=== PATIENT | female | born 1955 | race Caucasian/White ===

== ENCOUNTER 2022-08-31 16:29 | Emergency (ER) | payer MEDICARE, BC, SELFPAY ==
[2022-08-31 16:57] VITALS: BP 162/65; PULSE 72; RESP 18; TEMP 37.2; O2SAT 97
--- NOTE | 2022-08-31 17:13 | ED.URI ---
HPI - URI/Sore Throat General Chief Complaint: Upper Respiratory Infection Stated Complaint: headache,cough,lt ear drainage Time Seen by Provider: 08/31/22 17:14 Source: patient, RN notes reviewed and old records reviewed Mode of arrival: ambulatory Limitations: no limitations History of Present Illness HPI Narrative: 66-year-old female presents to the [facility] with complaints of cough, headache and My sinuses are draining out of my ears. patient has a history of chronic sinus issues, multiple sinus surgeries. Symptoms x5 days. Related Data Home Medications Medication Instructions Recorded Confirmed aripiprazole 2 mg tablet 2 mg PO DAILY 08/31/22 08/31/22 azelastine 137 mcg (0.1 %) nasal 2 spray intranasal BID 08/31/22 08/31/22 spray aerosol duloxetine 60 mg capsule,delayed 60 mg PO DAILY 08/31/22 08/31/22 release omeprazole 20 mg capsule,delayed 20 mg PO DAILY 08/31/22 08/31/22 release rosuvastatin 10 mg tablet 10 mg PO DAILY 08/31/22 08/31/22 Allergies Allergy/AdvReac Type Severity Reaction Status Date / Time triamterene AdvReac Intermediate Nausea and Verified 08/31/22 17:45 Vomiting amlodipine AdvReac Mild Hives Verified 08/31/22 17:45 azithromycin AdvReac Mild Hives Verified 08/31/22 17:45 cetirizine AdvReac Mild Hives Verified 08/31/22 17:43 enalapril AdvReac Mild Hives Verified 08/31/22 17:44 fexofenadine AdvReac Mild Hives Verified 08/31/22 17:43 hydrochlorothiazide AdvReac Mild Itching Verified 08/31/22 17:44 hydroxyzine AdvReac Mild Hives Verified 08/31/22 17:46 sulfamethoxazole AdvReac Mild Itching Verified 08/31/22 17:46 [From Bactrim] trimethoprim [From Bactrim] AdvReac Mild Itching Verified 08/31/22 17:46 Review of Systems Review of Systems: All systems reviewed & are unremarkable except as noted in HPI and below Constitutional: Constitutional: Reports no additional constitutional complaints Eyes: Eyes: Reports no additional eye complaints ENT: Reports as per HPI and Reports nasal congestion Cardiovascular: Cardiovascular: Reports no additional cardiovascular complaints, Denies chest pain and Denies dyspnea Respiratory: Respiratory: Reports no additional respiratory complaints, Denies chest congestion, Denies cough and Denies dyspnea Gastrointestinal: Gastrointestinal: Reports no additional gastrointestinal complaints, Denies abdominal pain, Denies nausea and Denies vomiting Musculoskeletal: Musculoskeletal: Reports no additional musculoskeletal complaints Integumentary/Breasts: Skin/Breast: Reports system reviewed and no additional complaints, except as docu Neurologic: Reports system reviewed and no additional complaints, except as documented Psychiatric: Psychiatric: Reports no additional psychiatric complaints Allergic/Immunologic: Allergic/Immunologic: Reports no additional allergic/immunologic complaints PMFSH Past Medical History Medical History Acid reflux Anxiety and depression High cholesterol Surgical History Surgical History (Updated 08/31/22 @ 17:39 by Ludy Erickson APRN) History of sinus surgery Comments At the time of my signature, I reviewed and agree with the nursing past medical, surgical, social, and family history. There is no relevant family history pertinent to the patient complaint. Exam Const: General: cooperative, healthy appearing, comfortable, no acute distress, well developed, alert and well nourished Nutritional Appearance: well nourished and obese Orientation/consciousness: patient oriented x3 Limitations: no limitations HENMT: Head: normal to inspection Ears: hearing grossly normal bilaterally and external ears normal Face/Nose/Sinus: Normal external nose present, Normal nares present, Abnormal mucous membranes and turbinates present boggy bilateral and erythematous bilateral, no nasal discharge noted, normal facial exam, face symmetric and sinus tenderness Face and
== END 2022-08-31 17:45 | disposition home or self-care (01) ==
PROVIDERS: Emergency Provider Nurse Practitioner; PCP Internal Medicine
DX: J40 Bronchitis, not specified as acute or chronic (principal)
CPT/HCPCS: 99203; G0463

== ENCOUNTER 2022-09-02 15:05 | Emergency (ER) | payer MEDICARE, BC, SELFPAY ==
[2022-09-02 15:55] VITALS: BP 162/70; PULSE 65; RESP 20; TEMP 37.2; O2SAT 98
[2022-09-02 15:58] VITALS: BP 162/70; PULSE 65; RESP 20; TEMP 37.2; O2SAT 98
--- NOTE | 2022-09-02 16:11 | ED.GENADULT ---
HPI - General Adult General Chief complaint: Skin/Abscess/Foreign Body Stated complaint: rash Time Seen by Provider: 09/02/22 16:11 Source: patient Mode of arrival: ambulatory Limitations: no limitations History of Present Illness HPI narrative: 66-year-old female patient presents to the [facility] with complaints of a rash. Patient was seen here on Saturday and was prescribed methylprednisone and doxycycline for sinusitis. Patient states she feels like she is doing better after starting the medications yesterday. Patient states she still feels like she is wheezing at times. Patient denies any fevers, body aches or chills. Patient states she woke up this morning and noticed or bright red rash on her chest and feels itchy all over. Patient has issues in the past with being very sensitive to antibiotics and other medication and has multiple allergies that result in hives and rash. Patient was told a couple of years ago that she needed allergy shots however she refused umbilicus patient states she does have get allergy and sinus infections often. Patient states she did take some clear today which did help the itchiness symptoms. Patient states she does take Pepcid once a day but is supposed to take it twice a day for her gastrointestinal doctor. Patient denies any chest pain, shortness of breath or swelling to the throat. Related Data Home Medications Medication Instructions Recorded Confirmed aripiprazole 2 mg tablet 2 mg PO DAILY 08/31/22 09/02/22 azelastine 137 mcg (0.1 %) nasal 2 spray intranasal BID 08/31/22 09/02/22 spray aerosol duloxetine 60 mg capsule,delayed 60 mg PO DAILY 08/31/22 09/02/22 release omeprazole 20 mg capsule,delayed 20 mg PO DAILY 08/31/22 09/02/22 release rosuvastatin 10 mg tablet 10 mg PO DAILY 08/31/22 09/02/22 Allergies Allergy/AdvReac Type Severity Reaction Status Date / Time triamterene AdvReac Intermediate Nausea and Verified 09/02/22 15:58 Vomiting amlodipine AdvReac Mild Hives Verified 09/02/22 15:58 azithromycin AdvReac Mild Hives Verified 09/02/22 15:58 cetirizine AdvReac Mild Hives Verified 09/02/22 15:58 enalapril AdvReac Mild Hives Verified 09/02/22 15:58 fexofenadine AdvReac Mild Hives Verified 09/02/22 15:58 hydrochlorothiazide AdvReac Mild Itching Verified 09/02/22 15:58 hydroxyzine AdvReac Mild Hives Verified 09/02/22 15:58 sulfamethoxazole AdvReac Mild Itching Verified 09/02/22 15:58 [From Bactrim] trimethoprim [From Bactrim] AdvReac Mild Itching Verified 09/02/22 15:58 Review of Systems Review of Systems: CONSTITUTIONAL: Denies fever, chills, or sweats. EYES: Denies visual changes, redness, or discharge. ENT: Denies rhinorrhea, congestion, sore throat, or otalgia. CARDIOVASCULAR: Denies chest pain, palpitations, or edema. RESPIRATORY: Denies cough or dyspnea. GASTROINTESTINAL: Denies abdominal pain, nausea, vomiting, or diarrhea. GENITOURINARY: Denies dysuria or hematuria. SKIN: Denies rash or itching. MUSCULOSKELETAL: Denies back pain, joint pain, or myalgia. NEUROLOGIC: Denies headache, numbness, or weakness. PSYCHIATRIC: Denies anxiety or depression. [facility] Past Medical History Medical History (Updated 09/02/22 @ 16:37 by ALLISON Wilson) Acid reflux Anxiety and depression Environmental allergies High cholesterol Urticaria Surgical History Surgical History History of sinus surgery Comments At the time of my signature I agree with nursing past medical history, surgical, social, and family history. There is no relevant family history pertinent to the presenting complaint. Exam Narrative: GENERAL: Well-appearing, well-nourished, and in no acute distress. HEAD: Normocephalic, atraumatic. EYES: PERRLA and EOMI. ENT: Nares clear, no rhinorrhea or epistaxis. Mucous membranes moist. posterior pharynx with no erythema, tonsillar enlargement, exudates or lesions present. Bilateral TMs are c
== END 2022-09-02 16:31 | disposition home or self-care (01) ==
PROVIDERS: Emergency Provider Nurse Practitioner Family; PCP Internal Medicine
DX: L50.9 Urticaria, unspecified (principal)
CPT/HCPCS: 99211; G0463